=== PATIENT | male | born 1990 | race Caucasian/White ===

== ENCOUNTER 2022-02-03 00:12 | Emergency (ER) | payer OTHER ==
[~2022-02-03] VITALS: Ht 170.2 cm; Wt 82.0 kg
[2022-02-03] MEDS ORDERED: LIDOCAINE HCL 1% 20ML VIAL (Pyxis) INJ INFIL SCH (03:45)
[2022-02-03] MEDS ORDERED: LIDOCAINE HCL/PF 1% 10 MG/ML 5ML VIAL INFIL ONE (03:45)
[2022-02-03] MEDS ORDERED: POLY119P2 MT (04:08)
[2022-02-03] MEDS ORDERED: HYDR30CR80 TP (04:08)
[2022-02-03 05:06] VITALS: BP 125/66
== END 2022-02-03 05:07 | disposition home or self-care (01) ==
LOC: ER 00:12
DX: K64.5 Perianal venous thrombosis (principal); Z79.899 Other long term (current) drug therapy
CPT/HCPCS: 99283; A4217; J3490; Z7610